=== PATIENT | female | born 1995 | race Caucasian/White ===

== ENCOUNTER 2016-12-07 12:51 | Emergency (ER) | payer OTHER ==
[~2016-12-07] VITALS: Ht 160 cm; Wt 92.4 kg
[~2016-12-07 12:51] MED LIST: ANTIVERT25 MG PO; BCP; ENDOCET 5-3251 EACH PO; IBUPROFEN800 MG PO; PRENATAL FORMU1 EAC3 PO; PROTONIX40 MG PO
[2016-12-07] MEDS ORDERED: SKELAXIN800 MG PO (14:40)
[2016-12-07 14:58] VITALS: BP 137/78
== END 2016-12-07 15:00 | disposition home or self-care (01) ==
LOC: RME 12:51 → EME 12:51 → RME 15:00
DX: M25.512 Pain in left shoulder (principal); Z88.6 Allergy status to analgesic agent; Z88.2 Allergy status to sulfonamides; Z88.1 Allergy status to other antibiotic agents
CPT/HCPCS: 73030; 99281; 99284

== ENCOUNTER 2017-08-04 16:03 | Emergency (ER) | payer OTHER ==
[~2017-08-04] VITALS: Ht 160 cm; Wt 99.3 kg
[~2017-08-04 16:03] MED LIST changes: +SKELAXIN800 MG PO
[2017-08-04] MEDS ORDERED: INDOCIN50 MG PO (17:42)
[2017-08-04] MEDS ORDERED: MOTRIN800 MG PO (17:50)
[2017-08-04 18:08] VITALS: BP 134/73
== END 2017-08-04 18:10 | disposition home or self-care (01) ==
LOC: EME 16:03
DX: J04.0 Acute laryngitis (principal); Z87.891 Personal history of nicotine dependence
CPT/HCPCS: 87651 90; 99281; 99284; J1100

== ENCOUNTER 2018-04-07 12:38 | Emergency (ER) | payer OTHER ==
[~2018-04-07] VITALS: Ht 160 cm; Wt 97.7 kg
[~2018-04-07 12:38] MED LIST changes: +INDOCIN50 MG PO; +MOTRIN800 MG PO
[2018-04-07 13:16] LABS: APPEARANCE SL.HAZY ((CLEAR)); BILIRUBIN NEGATIVE; BLOOD NEGATIVE; COLOR STRAW ((YELLOW)); GLUCOSE (STRIP) NEGATIVE; KETONES NEGATIVE; LEUKOCYTES SMALL; NITRITE NEGATIVE; PROTEIN (STRIP) NEGATIVE; SPECIFIC GRAVITY 1.003 (1.000-1.030); UROBILINOGEN 0.2 MG/DL (0.2-1.0)
[2018-04-07 13:23] LABS: BACTERIA 3+ /HPF; CALCIUM OXALATE CRYSTALS 2+ /HPF; EPITHELIAL CELLS 1+ /HPF; MUCUS TRACE /LPF; RED BLOOD CELLS 0-5 /HPF (0-5); WHITE BLOOD CELLS 0-5 /HPF (0-5)
[2018-04-07 13:38] LABS: HEMATOCRIT 35.6 % (36.0-46.0); HEMOGLOBIN 12.2 G/DL (11.9-15.5); MCH 29.6 PG (29.0-34.0); MCHC 34.3 G/DL (30.0-36.0); MCV 86.4 FL (83-99); PLATELET COUNT 389 K/uL (156-360); RBC DIS.WIDTH-CV 13.2 % (11.8-14.6); RBC DIS.WIDTH-SD 41.3 % (39-53); RED BLOOD COUNT 4.12 M/uL (3.80-5.20); WHITE BLOOD COUNT 12.7 K/uL (4.1-10.2)
[2018-04-07 13:49] LABS: CHLORIDE 107 mEq/L (99-109); POTASSIUM 3.8 mEq/L (3.7-5.4); SODIUM 140 mEq/L (136-147)
[2018-04-07 13:50] LABS: GLUCOSE 93 mg/dL (70-99)
[2018-04-07 13:54] LABS: CREATININE 0.6 mg/dL (0.6-1.3); GFR ESTIMATE (CALCULATED) > 59 mL/min/
[2018-04-07 13:55] LABS: UREA NITROGEN (BUN) 6 mg/dL (9-23)
[2018-04-07] MEDS ORDERED: ANTIVERT25 MG PO (15:16)
[2018-04-07 15:33] VITALS: BP 105/57
== END 2018-04-07 15:37 | disposition home or self-care (01) ==
LOC: EME 12:38
PROVIDERS: Nurse Practitioner Family
DX: O26.892 Other specified pregnancy related conditions, second trimester (principal); R42 Dizziness and giddiness; Z3A.19 19 weeks gestation of pregnancy; O99.612 Diseases of the digestive system complicating pregnancy, second trimester; K21.9 Gastro-esophageal reflux disease without esophagitis; Z87.891 Personal history of nicotine dependence; Z88.5 Allergy status to narcotic agent; Z88.2 Allergy status to sulfonamides; Z88.1 Allergy status to other antibiotic agents
CPT/HCPCS: 80048; 81003; 85027; 99281; 99285; J7030